=== PATIENT | male | born 1955 | race Caucasian/White ===

== ENCOUNTER 2016-08-10 14:45 | Outpatient (CLI) | payer OTHER ==
[~2016-08-10] VITALS: Ht 170.2 cm; Wt 68.2 kg
[2016-08-10 15:15] VITALS: BP 133/63; PULSE 77; RESP 16; Ht 170.2 cm; Wt 68.2 kg
[2016-08-10] MEDS ORDERED: GABA300C16 PO (15:47)
[2016-08-10] MEDS ORDERED: LISI20TA11 PO (15:47)
[2016-08-10] MEDS ORDERED: ATOR80TA75 PO (15:47)
[2016-08-10] MEDS ORDERED: AMLO-218 PO (15:47)
[2016-08-10] MEDS ORDERED: ASPI-664 PO (15:47)
[2016-08-10] MEDS ORDERED: INSU100C SQ (15:47)
[2016-08-10] MEDS ORDERED: TAMS-14 PO (15:47)
[2016-08-10] MEDS ORDERED: LANT3I SC (15:47)
--- NOTE | 2016-08-11 11:49 | PN ---
Date/Time of Note Date/Time of Note DATE: 08/11/16 TIME: 11:49 Outpatient Progress Note Chief Complaint Diabetes/hypertension/hyperlipidemia/peripheral vascular disease/left AKA/ osteomyelitis right foot/chronic diarrhea/anemia/ HPI Diabetes/no polydipsia polyuria hypoglycemia, gastroparesis, no impaired vision, Hypertension/no headache or dizziness, no lightheadedness, no impaired vision, Hyperlipidemia/no xanthoma, on medication, side effect, Peripheral vascular disease/patient has been afebrile aspirin disease, status post amputation of left about knee, patient has osteomyelitis of right foot, Osteomyelitis right foot/patient has osteo-myelitis of right foot, no fever or chill, patient on antibiotic, Chronic diarrhea/patient has diarrhea, patient has a colitis, patient on vancomycin orally, Anemia/no hematemesis or melena, no ecchymosis, no bruises, Review of Systems Const: No Fever, no chills, no Wt. loss, no Fatigue, normal appetite, no diaphoresis. Eyes: No pain, no discharge, no redness, no visual change, no foreign body. ENT: No pain, no bleeding, no congestion, no sore throat, no dysphagia, no discharge or rhinitis. Lymph: No adenopathy, no tender nodes, no lymphedema. Resp: No SOB, no cough, no sputum, no wheezing, no chest pain. CV: No chest pain, no palpitaions, no DEL ANGEL, no PND, no edema. GI: Normal appetite, no pain, no nausea, no vomiting, no diarrhea, no blood, no constipation. : No frequency, no urgency, no dysuria, no hematuria, no flank pain, no discharge, no bleeding. Musc: Right foot discomfort, no back pain, no neck pain, no knee pain, no restricted ROM. Skin: No rash, no skin lesions, no erythema, no laceration, no bruising, no pruritus. Right foot cellulitis, Neuro: No CUEVAS, no dizziness, no syncope, no seizure, no focal-weakness. Endo: No polyuria, no polydypsia, no dry-skin, no temp-intolerance. Psych: No hallucinations, no depression, no anxiety, no suicidal ideation. Ext: No edema, right foot pain, cellulitis and osteomyelitis of right foot, covered at present,, no weakness. Left AKA, Physical Exam Vital Signs Date Time Temp Pulse Resp B/P Pulse Ox O2 Delivery O2 Flow Rate FiO2 08/10/16 15:15 98.0 77 16 133/63 98 Room Air General Appearance: A 61 year-old male who appears well-developed, well- nourished, in no acute distress. HEENT: Head normocephalic, atraumatic. Pupils equal, round, reactive to light and accommodate. Sclerae are no jaundice. Nasal turbinates pink without erythema or nasal discharge. Mucous membranes pink and moist without lesions. Oropharynx clear without any exudate or discharge. NECK: Supple. Trachea midline, No thyromegaly, No cervical lymphadenopathy, No mass, No carotid bruits, No JVD, Carotid pulses 2+ bilaterally. PULMONARY: Clear to auscultaion bilaterally, No retractions, Chest expansion symmetric bilaterally, no rales, no ronchi, no dulness on percussion. CARDIAC: Normal SI and S2, Regular rate and rythm, no murmur, gallop, or rub. GASTROINTESTINAL: Abdomen is soft, non-tender, Non Rigid, No distention, Positive bowel sounds x4 quadrants, Liver normal. SKIN: Warm, dry, no rash, no bruise, no echmosis right foot cellulitis, and has osteomyelitis, at present it is covered,. EXTREMITIES: Bilateral lower extremities no edema, no phlabitus, pulse palpable , no contracture. Left AKA, right foot osteomyelitis, MUSCULOSKELETAL: Spine Normal, Non-tender, Normal range of motion, No swelling, no deformity, no clubbing, or cyanosis, the patient has no edema to bilateral lower extremities, dorsalis pedis pulses palpable bilaterally. NEUROLOGIC: The patient is awake, alert, oriented, responding to yes/no questions appropriately, moving all extremities, cranial nerve intact, normal strenght, normal power, normal coordination, normal gait. Allergies Coded Allergies: Penicillins (Verified Allergy, Unknown, 08/10/16) PMH Diabetes/hypertension/hyperlipidemia/PVD/left AKA/osteomyelitis right foot/ colitis/anemia/electrolyte imbalance Amputation left AKA/bilateral foot surgery/bypass graft femoral artery Social Hx Used to smoke prior but now no more smoking no more drinking, Family Hx Noncontributory Assessment/Plan Impression Diabetes/hypertension/hyperlipidemia/PVD/left AKA/osteomyelitis right/chronic diarrhea/colitis/anemia Plan Patient education done about diabetes and hypertension, and peripheral vascular disease, patient advised to be very aggressive to control the blood pressure and blood sugar, patient explained risk very high, of cardiac events Patient also advised to follow with the green prize packer on regular basis,, Patient has all the medication, we will continue all medication, patient advised to bring blood sugar and blood pressure log for next visit, patient advised to follow with the primary care physician, Patient need to be very aggressive with osteo-myelitis, patient will be continued on antibiotic, explained the risk of losing other leg, Will call insurance company to see if they will authorized to see patient at [facility] Discussed with the family, to follow with the primary care,, CBC CMP, Medications Home Meds Reported Medications Tamsulosin Hcl* (Flomax*) 0.4 Mg Cap.er.24h, 0.4 MG PO DAILY, CAP 08/10/16 Amlodipine Besylate* (Norvasc*) 10 Mg Tablet, 10 MG PO DAILY, TAB 08/10/16 Lisinopril* (Lisinopril*) 20 Mg Tablet, 20 MG PO DAILY, #30 TAB 08/10/16 Insulin Lispro (Humalog) 100 Unit/1 Ml Cartridge, 12 UNIT SQ TID 08/10/16 Insulin Glargine* (Lantus*) 100 Unit/Ml Soln, 30 UNIT SC QAM, #1 VIAL 08/10/16 Gabapentin* (Gabapentin*) 300 Mg Capsule, 300 MG PO TID, #90 CAP 08/10/16 Atorvastatin* (Atorvastatin*) 80 Mg Tablet, 80 MG PO QHS, #30 TAB 08/10/16 Aspirin (Low Dose Aspirin) 81 Mg Tablet., 81 MG PO DAILY, #30 TAB 08/10/16 VALARIE HOUGH MD Aug 11, 2016 11:49
== END 2016-08-10 16:25 | disposition home or self-care (01) ==
LOC: DCC 14:45
PROVIDERS: ATTEND Internal Medicine
DX: E11.40 Type 2 diabetes mellitus with diabetic neuropathy, unspecified (principal); I10 Essential (primary) hypertension; E78.5 Hyperlipidemia, unspecified; E11.69 Type 2 diabetes mellitus with other specified complication; M86.9 Osteomyelitis, unspecified; K52.9 Noninfective gastroenteritis and colitis, unspecified; D64.9 Anemia, unspecified; Z89.612 Acquired absence of left leg above knee
CPT/HCPCS: G0463

== ENCOUNTER 2017-06-06 16:53 | Inpatient (IN) | payer OTHER ==
[~2017-06-06] VITALS: Ht 170.2 cm; Wt 56.4 kg
[~2017-06-06 16:53] MED LIST: AMLO-218 PO; ASPI-664 PO; ATOR80TA75 PO; GABA300C16 PO; INSU100C SQ; LANT3I SC; LISI20TA11 PO; TAMS-14 PO
[2017-06-06] MEDS ORDERED: APIXABAN 5 MG TABLET PO ONE (17:00)
[2017-06-06] MEDS ORDERED: ONDANSETRON 4 MG INJ IV PRN ×2 (17:30→18:30)
[2017-06-06] MEDS ORDERED: ACETAMINOPHEN 325 MG TAB PO PRN ×2 (17:30→18:30)
[2017-06-06 17:41] LABS: BASOPHILS % 0.5 % (0.0-2.0); EOSINOPHILS # 0.1 10^3/ul (0.0-0.5); EOSINOPHILS % 0.9 % (0.0-7.0); HEMATOCRIT 26.2 % (42.0-52.0); HEMOGLOBIN 8.2 g/dl (14.0-18.0); LYMPHOCYTES % 14.5 % (15.0-51.0); MEAN CORPUSCULAR HEMOGLOBIN 27.2 pg (29.0-33.0); MEAN CORPUSCULAR HGB CONC 31.3 g/dl (32.0-37.0); MEAN PLATELET VOLUME 9.2 fl (7.4-10.4); MONOCYTE # 0.5 10^3/ul (0.3-0.9); NEUTROPHILS % 75.6 % (39.0-77.0); PLATELET COUNT 307 10^3/UL (140-415); RED BLOOD COUNT 3.01 10^6/ul (4.70-6.10); RED CELL DISTRIBUTION WIDTH 14.9 % (11.5-14.5); WHITE BLOOD COUNT 6.6 10^3/ul (4.8-10.8)
[2017-06-06 17:56] LABS: INR 1.09; PROTIME 14.1 Sec (12.2-14.2); PT RATIO 1.1
[2017-06-06 17:57] LABS: PARTIAL THROMBOPLASTIN TIME 33.4 Sec (25.0-35.0)
[2017-06-06 17:59] LABS: ALBUMIN 3.1 g/dl (3.3-4.9); ALBUMIN/GLOBULIN RATIO 0.54; CALCIUM 8.3 mg/dl (8.4-10.2); CREATININE 1.14 mg/dl (0.61-1.24); POTASSIUM 4.2 mmol/L (3.5-5.1); TOTAL PROTEIN 8.8 g/dl (6.1-8.1)
[2017-06-06] MEDS ORDERED: LABETALOL HCL 20MG INJ IV ONE (18:00)
[2017-06-06] MEDS ORDERED: hydrALAzine 20 MG INJ IV PRN (18:30)
[2017-06-06] MEDS ORDERED: DEXTROSE 50% 50 ML SYRINGE IV PRN ×2 (18:30)
[2017-06-06] MEDS ORDERED: ALBUTEROL/IPRATROPIUM (NEB) 3 ML AMP HHN PRN (18:30)
[2017-06-06] MEDS ORDERED: NA PHOSPHATE/BIPHOS 133 ML ENEMA PR PRN (18:30)
[2017-06-06] MEDS ORDERED: GLUCOSE GEL 15 GRAM TUBE PO PRN ×2 (18:30)
[2017-06-06] MEDS ORDERED: morphine 2 MG INJ IV PRN (18:30)
[2017-06-06] MEDS ORDERED: LORAZEPAM 2 MG INJ IV PRN (18:30)
[2017-06-06] MEDS ORDERED: NITROGLYCERIN (SL) 0.4 MG TAB SL PRN (18:30)
[2017-06-06] MEDS ORDERED: GLUCAGON 1 MG INJ IM PRN (18:30)
[2017-06-06] MEDS ORDERED: GLUCOSE GEL 15 GRAM TUBE BUCCAL PRN (18:30)
[2017-06-06] MEDS ORDERED: MAGNESIUM HYDROXIDE 30ML CUP PO PRN (18:30)
[2017-06-06] MEDS ORDERED: HYDROCODONE/APAP (5/325) TAB PO PRN (18:30)
[2017-06-06] MEDS ORDERED: NACL 0.9% 3 ML SYG IV SCH ×2 (18:30)
[2017-06-06] MEDS ORDERED: DOCUSATE SODIUM 100 MG CAP PO PRN (18:30)
[2017-06-06 18:58] VITALS: BP 189/81; RESP 18
[2017-06-06] MEDS: SOD CHLORIDE 0.45% 1,000 ML IV SCH (19:39)
[2017-06-06 19:49] VITALS: Ht 170.2 cm; Wt 56.4 kg
[2017-06-06 20:00] VITALS: BP 187/81; RESP 20
[2017-06-06] MEDS: GABAPENTIN 300 MG CAP PO SCH (20:16)
[2017-06-06] MEDS: APIXABAN 5 MG TABLET PO SCH (20:16)
[2017-06-06] MEDS: INSULIN ASPART [NOVOLOG] 3 ML PEN SC SCH (20:28)
--- NOTE | 2017-06-06 20:48 | ERD ---
ER Documentation Chief Complaint Chief Complaint pt xin family from home , sent for right leg DVT HPI Patient is a 62-year-old male with diabetes who presents with a DVT. The patient was sent from Dr. Felipe for a DVT which was found on outpatient ultrasound of the right lower extremity. The patient has a left [id number] amputation already. He denies pain or swelling but there was an ultrasound done which shows a large right-sided DVT. The patient has no chest pain or shortness of breath. He has had no treatment as of yet. He has come directly from radiology to the emergency department for admission. ROS All systems reviewed and are negative except as per history of present illness. Medications Home Meds Reported Medications Tamsulosin Hcl* (Flomax*) 0.4 Mg Cap.er.24h, 0.4 MG PO DAILY, CAP 08/10/16 Amlodipine Besylate* (Norvasc*) 10 Mg Tablet, 10 MG PO DAILY, TAB 08/10/16 Lisinopril* (Lisinopril*) 20 Mg Tablet, 20 MG PO DAILY, #30 TAB 08/10/16 Insulin Lispro (Humalog) 100 Unit/1 Ml Cartridge, 12 UNIT SQ TID 08/10/16 Insulin Glargine* (Lantus*) 100 Unit/Ml Soln, 30 UNIT SC QAM, #1 VIAL 08/10/16 Gabapentin* (Gabapentin*) 300 Mg Capsule, 300 MG PO TID, #90 CAP 08/10/16 Atorvastatin* (Atorvastatin*) 80 Mg Tablet, 80 MG PO QHS, #30 TAB 08/10/16 Aspirin (Low Dose Aspirin) 81 Mg Tablet.dr, 81 MG PO DAILY, #30 TAB 08/10/16 Allergies Allergies: Coded Allergies: Penicillins (Verified Allergy, Unknown, 08/10/16) PMhx/Soc History of Surgery: Yes (left bka, 3 toes amputated in right foot, right heel surgery) Anesthesia Reaction: No Hx Neurological Disorder: No Hx Respiratory Disorders: No Hx Cardiac Disorders: Yes (htn, ) Hx Psychiatric Problems: No Hx Miscellaneous Medical Probl: No Hx Alcohol Use: No Hx Substance Use: No Hx Tobacco Use: No Smoking Status: Never smoker FmHx Family History: diabetes Physical Exam Vitals Vital Signs Date Time Temp Pulse Resp B/P Pulse Ox O2 Delivery O2 Flow Rate FiO2 06/06/17 16:56 98.3 90 18 200/87 98 Physical Exam Const: No acute distress Head: Atraumatic Eyes: Normal Conjunctiva ENT: Normal External Ears, Nose and Mouth. Neck: Full range of motion..~ No meningismus. Resp: Clear to auscultation bilaterally Cardio: Regular rate and rhythm, no murmurs Abd: Soft, non tender, non distended. Normal bowel sounds Skin: No petechiae or rashes Back: No midline or flank tenderness Ext: Swelling of the right lower extremity, left sided [id number] amputation Neur: Awake and alert Psych: Normal Mood and Affect Result Diagram: 06/06/17 1726 06/06/17 1726 Results 24 hrs Current Medications Medications (Trade) Dose Ordered Sig/Bari Route PRN Reason Start Time Stop Time Status Last Admin Dose Admin Apixaban (Eliquis) 10 mg ONCE ONCE PO 06/06/17 17:00 06/06/17 17:01 DC 06/06/17 17:41 Procedures/MDM Ultrasound done as an outpatient shows large right-sided DVT per radiology. Patient is a 62-year-old male presents with acute DVT of the right lower extremity. The patient was given Eliquis in the emergency department. He will be admitted to the care of Dr. Aparicio. The patient understands the plan is okay for admission at this time to a medical surgical bed. At this point I doubt pulmonary embolism. Departure Diagnosis: Primary Impression: DVT (deep venous thrombosis) DVT location: lower extremity Affected thrombotic vein of extremity: unspecified vein of extremity Chronicity: acute Laterality: right Qualified Code: I82.401 - Acute deep vein thrombosis (DVT) of right lower extremity, unspecified vein Condition: SEAN Quinn MD Jun 06, 2017 20:48
[2017-06-06] MEDS ORDERED: TAMSULOSIN (SR) 0.4 MG CAP PO SCH (21:00)
[2017-06-06] MEDS ORDERED: ATORVASTATIN 80 MG TAB PO SCH (21:00)
--- NOTE | 2017-06-07 01:38 | HP ---
DATE OF ADMISSION: 06/06/2017 REASON FOR VISIT: This is a 62-year-old male sent in from vascular surgeon's office because of lower extremity DVT. HISTORY OF PRESENT ILLNESS: The patient is a 62-year-old male with a past medical history of left knee amputation, peripheral vascular disease, type 2 diabetes, high cholesterol, and hypertension who was sent in from Dr. Felipe Vascular Surgery office earlier today. Apparently the patient had gone there for a regular checkup and was diagnosed on ultrasound with right lower extremity DVT. The patient denies any prior history of DVT. No chest pain. He is having some mild coughing that has been chronic, but no hemoptysis. No nausea or vomiting. No shortness of breath. No diarrhea or constipation, and again his right lower extremity ultrasound showed extensive acute DVT throughout the right lower extremity, and he had an arterial study performed as well that showed calcified plaque in the right popliteal artery and right posterior tibial artery, and monophasic flow throughout the right lower extremity arterial system consistent with aortoiliac disease. PAST MEDICAL HISTORY: As stated above. ALLERGIES: PENICILLIN. MEDICATIONS: 1. Flomax 0.4 mg daily. 2. Norvasc 10 mg daily. 3. Atorvastatin 80 mg q.h.s. 4. Lisinopril 20 mg daily. 5. Aspirin 81 mg daily. 6. Gabapentin 300 mg t.i.d. 7. Lantus 30 units q.a.m. 8. Humalog insulin 12 units subcutaneous t.i.d. PAST SURGICAL HISTORY: Again he has had a left below-knee amputation in the past. SOCIAL HISTORY: Negative for smoking, drinking and IV drug abuse today. PHYSICAL EXAMINATION: VITAL SIGNS: T-max 98.3, pulse 90, respirations 18, blood pressure 200/87, O2 saturation 98 percent on room air. GENERAL: The patient is lying in bed, answers questions appropriately, no acute distress. HEENT: Pupils are equal, round and reactive to light. Extraocular muscles are intact. NECK: Supple. No thyromegaly. LUNGS: Clear to auscultation bilaterally. CARDIOVASCULAR: S1 and S2 heard. No murmurs, rubs or gallops. ABDOMEN: Soft, nontender and nondistended. Normal bowel sounds. No rebound or guarding. MUSCULOSKELETAL: Again there is a left below-knee amputation. Right lower extremity shows no lower extremity edema on the right side. NEUROLOGIC: No focal deficits. LABORATORY DATA: CBC is normal although the hemoglobin is 8.2, sodium 134, potassium 4.2, chloride 100, CO2 24, BUN of 18, creatinine 1.14, glucose 269. The LFTs are essentially normal. Lipase is normal. We mentioned the imaging studies. Coagulations are normal. ASSESSMENT AND PLAN: The patient is a 62-year-old male with prior history of peripheral vascular disease and left below-knee amputation who comes in with right lower extremity DVT. 1. Right lower extremity DVT. We will admit the patient. We will sort out his insurance and see which anticoagulant medication the patient will be allowed to take based on insurance coverage. For now we have put him on Eliquis 10 mg p.o. b.i.d. We will get a vascular surgery consultation with Dr. Felipe given his history of peripheral vascular disease as well. Check TSH, A1c and lipid panel. 2. Type 2 diabetes. Again check A1c, put him on sliding scale insulin, and continue his home insulin. 3. High cholesterol. Check lipid panel as well. 4. Hypertension. [____] hypertensive urgency. Continue Norvasc. He is on hydralazine p.r.n. as well. 5. Prostate issues. Continue Flomax. 6. DVT prophylaxis. Obviously he has a DVT so he on Eliquis. Dictated By: Josh Aparicio MD /sabrina/santosh /Document#: [id number]
[2017-06-07 02:00] VITALS: BP 158/70; RESP 20
[2017-06-07] MEDS ORDERED: ACCU-CHEK XX SCH (02:00)
[2017-06-07 06:42] LABS: CHOL/HDL RATIO 6.8 RATIO
[2017-06-07 07:09] LABS: THYROID STIMULATING HORMONE 1.55 MIU/L (0.465-4.680)
[2017-06-07 07:24] VITALS: BP 150/70; RESP 18
[2017-06-07] MEDS: SOD CHLORIDE 0.45% 1,000 ML IV SCH ×2 (07:50→11:05)
[2017-06-07] MEDS: INSULIN ASPART [NOVOLOG] 3 ML PEN SC SCH ×7 (08:06→18:00)
[2017-06-07] MEDS ORDERED: LISINOPRIL 20 MG TAB PO SCH (09:00)
[2017-06-07] MEDS ORDERED: INSULIN GLARGINE [LANtus] 3 ML PEN SC SCH (09:00)
[2017-06-07] MEDS ORDERED: ASPIRIN (EC) 81 MG TAB PO SCH (09:00)
[2017-06-07] MEDS ORDERED: AMLODIPINE 10 MG TAB PO SCH (09:00)
[2017-06-07] MEDS: APIXABAN 5 MG TABLET PO SCH (09:13)
[2017-06-07] MEDS: GABAPENTIN 300 MG CAP PO SCH ×2 (09:14→13:28)
--- NOTE | 2017-06-07 11:24 | PN ---
Date/Time of Note Date/Time of Note DATE: 06/07/17 TIME: 11:22 Assessment/Plan VTE Prophylaxis VTE Prophylaxis Intervention: other (Eliquis) Lines/Catheters IV [facility]ter [facility]from [facility]): Peripheral IV Assessment/Plan Chief Complaint/Hosp Course ASSESSMENT AND PLAN: The patient is a 62-year-old male with prior history of peripheral vascular disease and left below-knee amputation who comes in with right lower extremity DVT. 1. Right lower extremity DVT. -Continue Eliquis 10 mg p.o. b.i.d. -Follow-up vascular surgery consultation with Dr. Felipe given his history of peripheral vascular disease as well. -Follow-up TSH, A1c and lipid panel. 2. Type 2 diabetes-continue sliding scale insulin, and continue his home insulin. 3. High ajakagmjbjf-gybekj-am lipid panel as well. 4. Hypertension/hypertensive urgency-blood pressure improved now - Continue Norvasc. He is on hydralazine p.r.n. as well. 5. Prostate issues. Continue Flomax. 6. DVT prophylaxis. Obviously he has a DVT so he on Eliquis. Problems: Subjective 24 Hr Interval Summary Free Text/Dictation No acute events overnight. Exam/Review of Systems Vital Signs Vitals Vital Signs Date Time Temp Pulse Resp B/P Pulse Ox O2 Delivery O2 Flow Rate FiO2 06/07/17 07:24 99.3 82 18 150/70 100 Intake and Output 06/06/17 06/06/17 06/07/17 15:00 23:00 07:00 Intake Total 700 ml Balance 700 ml Exam GENERAL: The patient is lying in bed, answers questions appropriately, no acute distress. HEENT: Pupils are equal, round and reactive to light. Extraocular muscles are intact. NECK: Supple. No thyromegaly. LUNGS: Clear to auscultation bilaterally. CARDIOVASCULAR: S1 and S2 heard. No murmurs, rubs or gallops. ABDOMEN: Soft, nontender and nondistended. Normal bowel sounds. No rebound or guarding. MUSCULOSKELETAL: Again there is a left below-knee amputation. Right lower extremity shows no lower extremity edema on the right side. NEUROLOGIC: No focal deficits. Results Result Diagram: 06/06/17 1726 06/06/17 1726 Results 24 hrs Laboratory Tests Test 06/06/17 17:26 06/06/17 20:20 06/07/17 01:57 06/07/17 05:25 White Blood Count 6.6 Red Blood Count 3.01 L Hemoglobin 8.2 L Hematocrit 26.2 L Mean Corpuscular Volume 87.0 Mean Corpuscular Hemoglobin 27.2 L Mean Corpuscular Hemoglobin Concent 31.3 L Red Cell Distribution Width 14.9 H Platelet Count 307 Mean Platelet Volume 9.2 Neutrophils % 75.6 Lymphocytes % 14.5 L Monocytes % 8.0 Eosinophils % 0.9 Basophils % 0.5 Nucleated Red Blood Cells % 0.0 Neutrophils # 5.0 Lymphocytes # 1.0 Monocytes # 0.5 Eosinophils # 0.1 Basophils # 0.0 Nucleated Red Blood Cells # 0.0 Prothrombin Time 14.1 Prothrombin Time Ratio 1.1 INR International Normalized Ratio 1.09 Activated Partial Thromboplast Time 33.4 Sodium Level 134 L Potassium Level 4.2 Chloride Level 100 Carbon Dioxide Level 24 Anion Gap 14 Blood Urea Nitrogen 18 Creatinine 1.14 Glucose Level 269 H Calcium Level 8.3 L Total Bilirubin 0.0 L Direct Bilirubin 0.00 Indirect Bilirubin 0.0 Aspartate Amino Transf (AST/SGOT) 16 Alanine Aminotransferase (ALT/SGPT) 18 Alkaline Phosphatase 131 H Total Protein 8.8 H Albumin 3.1 L Globulin 5.70 H Albumin/Globulin Ratio 0.54 Lipase 51 Bedside Glucose 252 H 123 Hemoglobin A1c 9.2 H Triglycerides Level 110 Cholesterol Level 117 LDL Cholesterol, Calculated 78 HDL Cholesterol 17 L Cholesterol/HDL Ratio 6.8 Thyroid Stimulating Hormone (TSH) 1.550 Free Thyroxine 1.47 Test 06/07/17 08:05 Bedside Glucose 102 Medications Medications Current Medications Ondansetron HCl (Zofran Inj) 4 mg Q6H PRN IV NAUSEA AND/OR VOMITING; Start 06/06/17 at 18:30 Acetaminophen (Tylenol Tab) 650 mg Q6H PRN PO PAIN LEVEL 1-3 OR FEVER; Start 06/06/17 at 18:30 Acetaminophen/ Hydrocodone Bitart ([place] (5/325)) 1 tab Q6H PRN PO MODERATE PAIN LEVEL 4-6; Start 06/06/17 at 18:30 Morphine Sulfate (morphine) 2 mg Q4H PRN IV SEVERE PAIN LEVEL 7-10; Start 06/06 at 18:30 Docusate Sodium (Colace) 100 mg Q12H PRN PO CONSTIPATION; Start 06/06/17 at 18: 30 Magnesium Hydroxide (Milk Of Mag) 30 ml DAILY PRN PO CONSTIPATION; Start at 18:30 Sodium Biphosphate/ Sodium Phosphate 133 ml 133 ml DAILY PRN AL CONSTIPATION; Start 06/06/17 at 18:30 Sodium Chloride (1/2 NS) 1,000 ml @ 75 mls/hr [id number] IV Last administered on 06/07/17 11:05; Admin Dose 75 MLS/HR; Start 06/06/17 at 18:30 Lorazepam (Ativan) 0.5 mg Q6H PRN IV ANXIETY; Start 06/06/17 at 18:30 Hydralazine HCl (Apresoline) 10 mg Q6H PRN IV ELEVATED BLOOD PRESSURE Last administered on 06/06/17 20:17; Admin Dose 10 MG; Start 06/06/17 at 18:30 Clonidine (Catapres) 0.1 mg Q6H PRN PO ELEVATED BLOOD PRESSURE; Start 06/06/17 at 18:30 Nitroglycerin (Nitroglycerin (Sl Tab) 0.4 Mg) 1 tab Q5M PRN SL ANGINA; Start 06/06/17 at 18:30 Amlodipine Besylate (Norvasc) 10 mg DAILY PO Last administered on 06/07/17 09: 14; Admin Dose 10 MG; Start 06/07/17 at 09:00 Aspirin (Halfprin) 81 mg DAILY PO Last administered on 06/07/17 09:14; Admin Dose 81 MG; Start 06/07/17 at 09:00 Atorvastatin Calcium (Lipitor) 80 mg QHS PO Last administered on 06/06/17 20: 16; Admin Dose 80 MG; Start 06/06/17 at 21:00 Gabapentin (Neurontin) 300 mg TID PO Last administered on 06/07/17 09:14; Admin Dose 300 MG; Start 06/06/17 at 21:00 Insulin Glargine (Lantus) 30 unit QAM SC Last administered on 06/07/17 08:56; Admin Dose 30 UNIT; Start 06/07/17 at 09:00 Lisinopril (Zestril) 20 mg DAILY PO Last administered on 06/07/17 10:24; Admin Dose 20 MG; Start 06/07/17 at 09:00 Tamsulosin HCl (Flomax) 0.4 mg DAILY@21 PO Last administered on 06/06/17 20:16 ; Admin Dose 0.4 MG; Start 06/06/17 at 21:00 Apixaban (Eliquis) 10 mg BID PO Last administered on 06/07/17 09:13; Admin Dose 10 MG; Start 06/06/17 at 19:00; Stop 06/13/17 at 09:01 Apixaban (Eliquis) 5 mg BID PO ; Start 06/13/17 at 21:00 Diagnostic Test (Pha) (Accu-Chek) 1 ea 02 XX Last administered on 06/07/17 02: 12; Admin Dose 1 EA; Start 06/07/17 at 02:00 Miscellaneous Information 1 ea NOTE XX ; Start 06/06/17 at 18:30 Glucose (Glutose) 15 gm Q15M PRN PO DECREASED GLUCOSE; Start 06/06/17 at 18:30 Glucose (Glutose) 22.5 gm Q15M PRN PO DECREASED GLUCOSE; Start 06/06/17 at 18: 30 Dextrose (D50w Syringe) 25 ml Q15M PRN IV DECREASED GLUCOSE; Start 06/06/17 at 18:30 Dextrose (D50w Syringe) 50 ml Q15M PRN IV DECREASED GLUCOSE; Start 06/06/17 at 18:30 Glucagon (Glucagen) 1 mg Q15M PRN IM DECREASED GLUCOSE; Start 06/06/17 at 18:30 Glucose (Glutose) 15 gm Q15M PRN BUCCAL DECREASED GLUCOSE; Start 06/06/17 at 18 :30 NATALIE VALLE Jun 07, 2017 11:24
--- NOTE | 2017-06-07 13:50 | PDOCDIS ---
Discharge Instructions CONDITION Patient Condition: Stable HOME CARE INSTRUCTIONS: Special Diet: carb controlled diet ACTIVITY: Activity Restrictions: Slowly Increase Activity FOLLOW UP/APPOINTMENTS Follow-up Plan Please take your medications as prescribed, and see your doctor in the clinic in 1 week. NATALIE VALLE Jun 07, 2017 13:50
[2017-06-07] MEDS ORDERED: APIX5TAB PO (13:51)
[2017-06-07 14:27] VITALS: BP 124/65; RESP 20
--- NOTE | 2017-06-07 15:59 | DS ---
DATE OF ADMISSION: 06/06/2017 DATE OF DISCHARGE: 06/07/2017 HISTORY OF PRESENT ILLNESS: This is a 62-year-old male admitted on 06/06/2017, discharged on 06/07/2017. The patient came in after being sent in from [facility] because of new finding of Right lower extremity DVT. This is the 1st episode he has ever had. DVT was found in his right lower extremity. He does have a prior history of left knee amputation, so he was admitted. He was placed on Eliquis medications. We checked with case management to see which anticoagulant the patient could take at home for treatment of his lower extremity DVT, it turns out that his insurance, per what the adult protective caseworker told me, is that his insurance will cover Eliquis. HOSPITAL COURSE: His A1c was found to be 9.2, he was placed on sliding scale insulin. His sugars remained stable, he is back at his baseline status, his vital signs remained stable, and he will be discharged home today in improved condition. He will go home with. Eliquis 10 mg p.o. b.i.d. for 6 more days. Then after that, he will start Eliquis 5 mg p.o. b.i.d. for the next 90 days. He will continue Norvasc 10 mg daily, aspirin 81 mg daily, atorvastatin 80 mg nightly, gabapentin 300 mg t.i.d., Lantus 30 units subcu q.a.m., Humalog lispro 12 units t.i.d., lisinopril 20 mg daily, Flomax 0.4 mg daily. He will need to follow with primary care doctor team clinic in next 1 to 2 weeks. FINAL DIAGNOSES: 1. Right lower extremity deep vein thrombosis, now on anticoagulation. 2. Type 2 diabetes. A1c 9.3. 3. High cholesterol. 4. Hypertension. He did come in with some hypertensive urgency that has resolved now. 5. History of prostate issues. Time to discharge patient, 45 minutes. Dictated By: Josh Aparicio MD /sabrina/bert /Document#: [id number] [email or web address]
[2017-06-13] MEDS ORDERED: APIXABAN 5 MG TABLET PO SCH (21:00)
== END 2017-06-07 18:05 | disposition home or self-care (01) | DRG 301 ==
LOC: E/R 16:53 → MS2 17:25
PROVIDERS: ADMIT Hospitalist; ATTEND Hospitalist
DX: I82.4Z1 Acute embolism and thrombosis of unspecified deep veins of right distal lower extremity (principal); I10 Essential (primary) hypertension; E11.9 Type 2 diabetes mellitus without complications; E78.00 Pure hypercholesterolemia, unspecified
CPT/HCPCS: 36415; 80053; 80061; 82962; 83036; 83690; 84439; 84443; 85025; 85610; 85730; 96374; J0360; J1815

== ENCOUNTER 2018-02-06 14:37 | Inpatient (IN) | END 2018-02-19 16:57 | disposition EXP | DRG 870 ==